=== PATIENT | female | born 1960 | race Caucasian/White ===

== ENCOUNTER → 2024-05-11 10:31 | Outpatient (REF) | payer OTHER, SELFPAY | LOC: WDC 10:31 | PROVIDERS: ATTENDING PHYSICIAN Physician Assistant Medical | DX: Z12.31 Encounter for screening mammogram for malignant neoplasm of breast (principal) | CPT/HCPCS: 77063; 77067 ==

== ENCOUNTER → 2025-02-24 16:19 | Outpatient (REF) | payer OTHER, SELFPAY | LOC: RAD 16:19 | PROVIDERS: ATTENDING PHYSICIAN Urology; FAMILY PHYSICIAN Physician Assistant Medical | DX: N39.0 Urinary tract infection, site not specified (principal); N39.46 Mixed incontinence | CPT/HCPCS: 76770; 76856 ==

== ENCOUNTER 2025-06-12 06:25 | Day surgery (SDC) | payer OTHER, SELFPAY ==
[2025-06-12] VITALS (10 sets, daily range): BP systolic 103–150; BP diastolic 56–94; BMI 22.6
[2025-06-12] MEDS: TYLENOL 1000 MG PO (12:08)
[2025-06-12] MEDS: NORMOSOL-R/PLASMALYTE-A 1000 IV (12:09)
[2025-06-12 12:14] LABS: Hematocrit 32.5 % (37.0-47.0); Hemoglobin 11.4 g/dL (12.0-16.0); Mean Corp Hgb Conc. 35.1 g/dL (33.0-37.0); Mean Corpuscular Volume 104.2 fL (81.0-99.0); Platelet Count 247 10^3/uL (130-400); Red Cell Dist. Width 13.8 % (11.5-14.5)
[2025-06-12 12:47] LABS: ALT (SGPT) 23 U/L (0-35); AST (SGOT) 32 U/L (14-36); Albumin 4.9 g/dl (3.5-5.0); Alkaline Phosphatase 58 U/L (38-126); Blood Urea Nitrogen 11 mg/dl (7-17); Calcium 9.8 mg/dl (8.4-10.2); Carbon Dioxide 27 mmol/L (22-30); Chloride 103 mmol/L (98-107); Estimated Creatinine Clearance 90 ml/min; Glucose 85 mg/dl (70-99); Potassium 4.8 mmol/L (3.5-5.1); Sodium 137 mmol/L (135-145); Total Protein 7.7 g/dl (6.3-8.2); eGFR > 60.00
--- NOTE | 2025-06-12 16:07 | W.IMMPOSTOP ---
Surgical Immed Post Op Note
-
Primary Surgeon: Blair Moran MD
Assisting Surgeon:
Pre-op Diagnosis: right proximal humerus fracture
Post-op Diagnosis: right proximal humerus fracture
Procedure Performed: open reduction internal fixation right proximal humerus
Anesthesia Type: general with regional
Specimen / Cultures: none
Estimated Blood Loss: 50mL
Complications: none apparent
Operative Findings: right proximal humerus fracture with minimal comminution of greater tuberosity
Implants: Mir [id number] 3-hole proximal humerus locking plate
Operative dictation #: [id number]
== END 2025-06-12 18:00 | disposition home or self-care (01) ==
LOC: SDS 06:25
PROVIDERS: ATTENDING PHYSICIAN Student in an Organized Health Care Education/Training Program
DX: S42.201A Unspecified fracture of upper end of right humerus, initial encounter for closed fracture (principal); W18.30XA Fall on same level, unspecified, initial encounter; Y92.009 Unspecified place in unspecified non-institutional (private) residence as the place of occurrence of the external cause
CPT/HCPCS: 23615; 73030; 73060; 76000; 80053; 85027; 93005; C1713